=== PATIENT | female | born 1990 | race Caucasian/White ===

== ENCOUNTER → 2024-09-17 | Outpatient (REF) | payer OTHER, MEDICAID ==
[~2024-09-17] MED LIST: ASPI81CH33 PO; FAMO20TA PO; IRON65TA2 PO; LEXA1TAB PO; MULTTAB20 PO; PULM0.25 INH; VENTAER INH
== END ==
LOC: M SFHCWAGY 12:50
PROVIDERS: ATTEND Specialist
DX: O99.213 Obesity complicating pregnancy, third trimester (principal)

== ENCOUNTER → 2024-12-11 | Outpatient (REF) | LOC: M PLAIMG 11:48 | PROVIDERS: ATTEND Internal Medicine | DX: R52 Pain, unspecified (principal) ==

== ENCOUNTER → 2025-01-01 | Outpatient (REF) | payer MEDICAID, OTHER ==
[2025-01-01 17:49] LABS: BASO # 0.0 10^3/uL (0.0-0.2); BASO % 0.6 % (0.0-1.0); EOS # 0.2 10^3/uL (0.0-0.5); EOS % 3.5 % (0.0-3.0); LYMPH # 2.2 10^3/uL (1.5-5.0); LYMPH % 35.2 % (24.0-44.0); MONO # 0.4 10^3/uL (0.0-0.8); MONO % 6.8 % (2.0-8.0); NEUTROPHILS # 3.4 10^3/uL (1.5-8.5); NEUTROPHILS % 53.6 % (36.0-66.0); PLATELET COUNT, AUTOMATED 357 10^3/uL (150-450)
[2025-01-01 17:50] LABS: HCG, SERUM QUALITATIVE NEGATIVE (NEGATIVE)
[2025-01-01 17:52] LABS: ALT/SGPT 18 U/L (7.0-40); AST/SGOT 13 U/L (<34); CALCIUM LEVEL 9.4 MG/DL (8.5-10.1); CARBON DIOXIDE LEVEL 28 MMOL/L (20-31); CHLORIDE LEVEL 101 MMOL/L (98-107); CHOLESTEROL LEVEL 210 MG/DL (<200); CHOLESTEROL RISK RATIO 4.42 (<5); CREATININE FOR GFR 0.59 MG/DL (0.55-1.30); GLOMERULAR FILTRATION RATE > 90.0 (>60); IRON (FE) 46 UG/DL (50-170); LDL CHOLESTEROL 139.5 MG/DL (<100); NON-HDL-C 162.5 MG/DL; PERCENT SATURATION 11.3 % (13.2-45.0); POTASSIUM SERUM 4.3 MMOL/L (3.5-5.1); SODIUM LEVEL 140 MMOL/L (136-145); TRIGLYCERIDES LEVEL 115 MG/DL (<150)
[2025-01-01 19:13] LABS: ESTIMATED AVERAGE GLUCOSE 100.0 MG/DL (60-110)
== END ==
LOC: M SFHCLERA 11:03
PROVIDERS: ATTEND Internal Medicine
DX: G43.019 Migraine without aura, intractable, without status migrainosus (principal); D50.8 Other iron deficiency anemias; M54.89 Other dorsalgia; E66.09 Other obesity due to excess calories